=== PATIENT | male | born 1945 | race Caucasian/White ===

== ENCOUNTER 2019-10-07 10:41 | Emergency (ER) | payer OTHER ==
[2019-10-07] MEDS ORDERED: NA CHLORIDE 0.9% 1,000 ML ONE (11:22)
[2019-10-07] MEDS ORDERED: CEFEPIME 1 GM/100 ML BAG IV ONE (11:22)
[2019-10-07] MEDS ORDERED: PANTOPRAZOLE 40 MG INJ ONE (11:22)
[2019-10-07 11:49] LABS: Absolute Lymphocytes (CBC) 0.1 K/uL (0.7-4.9); Basophils % 0.5 % (0-1.3); Hematocrit 22.9 % (39.6-49.0); Lymphocytes % 0.9 % (15.3-44.8); MPV 7.4 fL (7.6-11.3); RBC Red Blood Cell Count 3.08 M/uL (4.33-5.43)
--- NOTE | 2019-10-07 12:04 | RAD REPORT ---
EXAM DESCRIPTION: Pérez Single View10/07/2019 11:42 am CLINICAL HISTORY: sob COMPARISON: 2018 FINDINGS: Moderate right pleural effusion Diffuse bilateral pulmonary opacities. The heart is mildly to moderately enlarged. IMPRESSION: These findings likely indicate CHF
[2019-10-07 12:09] LABS: Protime INR 5.29
--- NOTE | 2019-10-07 12:14 | EDPHYS ---
Physician Documentation [facility] Name: Mary Jacob Jr Age: 74 yrs Sex: Male : 1945 Arrival Date: 10/07/2019 Time: 10:44 Bed 3 Private MD: ED Physician Uriel Kennedy HPI: 10/07 11:15 This 74 yrs old Male presents to ER via EMS with complaints of Back Pain, Low dorian Blood Sugar. 11:15 The patient presents with pain that is chronic, with no known mechanism of injury. The dorian symptoms are located in the low back. Onset: The symptoms/episode began/occurred this morning. Historical: - Allergies: 10:51 No Known Allergies; ss - Home Meds: 11:09 Magnesium [Active]; Xifaxan oral oral [Active]; Tramadol Oral [Active]; Coumadin Oral ss [Active]; pantoprazole oral oral [Active]; midodrine oral oral [Active]; Stool Softner [Active]; propranolol Oral [Active]; Coreg Oral [Active]; torsemide oral oral [Active]; Spironolactone Oral [Active]; levothyroxine oral [Active]; dobutamine drip continuous [Active]; Adempas oral oral [Active]; - PMHx: 10:51 Hypertension; Cirrhosis; TIA; CHF; Atrial Fib; ss 11:09 Hypothyroidism; Pulmonary hypertension; ss - Immunization history:: Flu vaccine is not up to date. - Social history:: Smoking status: Patient/guardian denies using tobacco. - Ebola Screening: : No symptoms or risks identified at this time. ROS: 11:16 Constitutional: Negative for fever, chills, and weight loss, Eyes: Negative for injury, dorian pain, redness, and discharge, ENT: Negative for injury, pain, and discharge, Neck: Negative for injury, pain, and swelling, Cardiovascular: Negative for chest pain, palpitations, and edema, Respiratory: Negative for shortness of breath, cough, wheezing, and pleuritic chest pain, Back: Negative for injury and pain, : Negative for injury, bleeding, discharge, and swelling, MS/Extremity: Negative for injury and deformity, Allergy/Immunology: Negative for hives, rash, and allergies, Endocrine: Negative for neck swelling, polydipsia, polyuria, polyphagia, and marked weight changes, Hematologic/Lymphatic: Negative for swollen nodes, abnormal bleeding, and unusual bruising. 11:16 Abdomen/GI: Positive for abdominal pain, of the right upper quadrant, left upper quadrant, right lower quadrant and left lower quadrant. 11:16 MS/extremity: Positive for laceration, pain, of the right arm, left arm, right leg and left leg, cachectic appearence. 11:16 Skin: Positive for ecchymosis, laceration(s). Exam: 11:16 Constitutional: This is a well developed, well nourished patient who is awake, alert, dorian and in no acute distress. Head/Face: Normocephalic, atraumatic. Eyes: Pupils equal round and reactive to light, extra-ocular motions intact. Lids and lashes normal. Conjunctiva and sclera are non-icteric and not injected. Cornea within normal limits. Periorbital areas with no swelling, redness, or edema. ENT: Nares patent. No nasal discharge, no septal abnormalities noted. Tympanic membranes are normal and external auditory canals are clear. Oropharynx with no redness, swelling, or masses, exudates, or evidence of obstruction, uvula midline. Mucous membranes moist. Neck: Trachea midline, no thyromegaly or masses palpated, and no cervical lymphadenopathy. Supple, full range of motion without nuchal rigidity, or vertebral point tenderness. No Meningismus. Chest/axilla: Normal chest wall appearance and motion. Nontender with no deformity. No lesions are appreciated. Respiratory: Lungs have equal breath sounds bilaterally, clear to auscultation and percussion. No rales, rhonchi or wheezes noted. No increased work of breathing, no retractions or nasal flaring. Back: No spinal tenderness. No costovertebral tenderness. Full range of motion. MS/ Extremity: Pulses equal, no cyanosis. Neurovascular intact. Full, normal range of motion. Psych: Awake, alert, with orientation to person, place and time. Behavior, mood, and affect are within normal limits. 11:16 Cardiovascular: Rate: normal, Rhythm: regular, Pulses: Pulses are 3+ in bilateral radial, brachial, femoral, popliteal, posterior tibial and and dorsalis pedis arteries.. Heart sounds: murmur, systolic, grade 2 over 6, heard in the aortic area, rub, not appreciated, gallop, not appreciated, JVD: is noted bilaterally, to 3 cm. 11:16 Respiratory: the patient does not display signs of respiratory distress, Respirations: normal, Breath sounds: are clear throughout, no bronchial sounds, no decreased breath sounds, no rales, rhonchi, no stridor, no wheezing. Vital Signs: 10:58 BP 86 / 49; Pulse 89; Resp 15; Temp 96.8(TE); Pulse Ox 100% on R/A; Weight 47.17 kg; ss 11:30 BP 86 / 57; Pulse 84; Resp 11; Pulse Ox 100% ; sv 12:00 BP 81 / 53; Pulse 82; Resp 14; Pulse Ox 100% ; sv 12:28 BP 81 / 52; Pulse 88; Resp 16; Temp 97.0; Pulse Ox 100% on R/A; sg 13:00 BP 80 / 50; Pulse 82; Resp 16; Pulse Ox 99% on R/A; sg 13:30 BP 84 / 53; Pulse 83; Resp 14; Pulse Ox 100% ; sv 14:00 BP 81 / 54; Pulse 84; Resp 12; Pulse Ox 100% ; sv 14:30 BP 84 / 55; Pulse 78; Resp 12; Pulse Ox 100% ; sv 14:58 BP 86 / 50; Pulse 77; Resp 14 S; Temp 97.0; Pulse Ox 100% on 4 lpm NC; sg MDM: 10:45 Patient medically screened. [facility] 11:19 Data reviewed: vital signs, nurses notes, lab test result(s), EKG, radiologic studies, dorian plain films. 10/07 11:14 Order name: Basic Metabolic Panel; Complete Time: 12:36 [facility] 10/07 11:14 Order name: CBC with Diff; Complete Time: 12:56 [facility] 10/07 11:14 Order name: LFT's; Complete Time: 12:36 [facility] 10/07 11:14 Order name: Magnesium; Complete Time: 12:36 [facility] 10/07 11:14 Order name: NT PRO-BNP; Complete Time: 12:36 [facility] 10/07 11:14 Order name: PT-INR; Complete Time: 12:36 [facility] 10/07 11:14 Order name: Troponin (emerg Dept Use Only); Complete Time: 12:36 [facility] 10/07 11:14 Order name: AMMONIA; Complete Time: 12:09 [facility] 10/07 11:14 Order name: Type And Screen; Complete Time: 12:56 [facility] 10/07 11:14 Order name: Blood Culture Adult (2) [facility] 10/07 11:14 Order name: Lactate; Complete Time: 12:09 [facility] 10/07 12:53 Order name: Glucose, Ancillary Testing; Complete Time: 12:56 [facility] 10/07 12:56 Order name: CBC Smear Scan; Complete Time: 12:56 [facility] 10/07 14:23 Order name: ABO/RH no charge [facility] 10/07 11:14 Order name: XRAY Chest (1 view); Complete Time: 12:36 [facility] 10/07 11:14 Order name: EKG; Complete Time: 11:15 [facility] 10/07 11:14 Order name: Cardiac monitoring; Complete Time: 11:15 [facility] 10/07 11:14 Order name: EKG - Nurse/Tech; Complete Time: 12:22 [facility] 10/07 11:14 Order name: IV Saline Lock; Complete Time: 11:16 [facility] 10/07 11:14 Order name: Labs collected and sent; Complete Time: 11:16 [facility] 10/07 11:14 Order name: O2 Per Protocol; Complete Time: 11:16 [facility] 10/07 11:14 Order name: O2 Sat Monitoring; Complete Time: 11:16 [facility] 10/07 14:41 Order name: Glucose, Ancillary Testing EDMS Administered Medications: 11:50 Drug: ProTONIX 40 mg Route: IVP; Site: PICC; sg 12:30 Follow up: Response: No adverse reaction sg 11:50 Drug: NS 0.9% 500 ml Route: IV; Rate: bolus; Site: PICC; sg 12:29 Follow up: Response: No adverse reaction; IV Status: Completed infusion; IV Intake: sg 500ml 11:50 Drug: NS 0.9% 1000 ml Route: IV; Rate: 125 ml/hr; Site: PICC; sg 11:50 Drug: Cefepime 1 grams Route: IVPB; Rate: 200 ml/hr; Infused Over: 30 mins; Site: PICC; sg 12:29 Follow up: Response: No adverse reaction; IV Status: Completed infusion sg 12:45 Drug: D50W 50 ml Route: IVP; Site: left forearm; sv 12:50 Drug: Vitamin K1 5 mg Route: Sub-Q; Site: right upper arm; sg 13:10 Drug: Albumin 25 grams Volume: 100 ml; Route: IVPB; Site: PICC; sg Disposition: 10/07/19 12:13 Transfer ordered to [facility]. Diagnosis are Hypoglycemia, unspecified, Unspecified cirrhosis of liver, Hypotension, Laceration without foreign body of unspecified upper arm, Laceration without foreign body, right lower leg, Unspecified combined systolic (congestive) and diastolic (congestive) heart failure, Pleural effusion in conditions classified elsewhere. - Reason for transfer: Higher level of care. - Accepting physician is [facility] junior back. - Condition is Stable. - Problem is new. - Symptoms have improved. Signatures: Dispatcher [employer] EDBerenice Argueta RN RN sv Gay, Steven, RN RN sg Anderson, Corey, MD MD cha Nieto, Roman, MD MD rn Smirch, Shelby, RN RN ss Corrections: (The following items were deleted from the chart) 15:01 12:13 10/07/2019 12:13 Transfer ordered to [facility]. Diagnosis is sg Hypoglycemia, unspecified; Unspecified cirrhosis of liver; Hypotension; Laceration without foreign body of unspecified upper arm; Laceration without foreign body, right lower leg; Unspecified combined systolic (congestive) and diastolic (congestive) heart failure; Pleural effusion in conditions classified elsewhere. Reason for transfer: Higher level of care. Accepting physician is [facility] junior back. Condition is Stable. Problem is new. Symptoms have improved. dorian
--- NOTE | 2019-10-07 12:14 | ER ---
Nurse's Notes [facility] Name: Mary Jacob Jr Age: 74 yrs Sex: Male : 1945 Arrival Date: 10/07/2019 Time: 10:44 Bed 3 Private MD: Diagnosis: Hypoglycemia, unspecified;Unspecified cirrhosis of liver;Hypotension;Laceration without foreign body of unspecified upper arm;Laceration without foreign body, right lower leg;Unspecified combined systolic (congestive) and diastolic (congestive) heart failure;Pleural effusion in conditions classified elsewhere Presentation: 10/07 10:45 Presenting complaint: EMS states: Pt woke up this AM in severe back/neck pain. ss told EMS that patient has declined in health significantly over the past week. BGL on arrival to scene was 37. 160 mL of D10 was given and brought glucose up to 97. Transition of care: patient was not received from another setting of care. Onset of symptoms is unknown. Risk Assessment: Do you want to hurt yourself or someone else? Patient reports no desire to harm self or others. Care prior to arrival: Medication(s) given: NS 100 mL, D10 160 mL, Zofran 4 mg and Ketamine 10 mg IV given for pain by EMS. Pt has a continuous Dobutamine drip infusing VIA subclavian central line. 10:45 Method Of Arrival: EMS: [facility] ss 10:45 Acuity: VAL 2 ss 10:54 Care prior to arrival: IV initiated. 20 GA, in the left forearm, Glucose check: 37. ss 11:02 Initial Sepsis Screen: Does the patient meet any 2 criteria? Mean Arterial Pressure ss (MAP) < 65. Does the patient have a suspected source of infection? No. Patient's initial sepsis screen is negative. Triage Assessment: 11:10 General: Appears uncomfortable, ill, unkempt, emaciated, cachectic, Behavior is sg cooperative, quiet. Pain: Complains of pain in back and chest Quality of pain is described as aching. EENT: No signs and/or symptoms were reported regarding the EENT system. Neuro: Level of Consciousness is awake, obeys commands, Speech is normal. Cardiovascular: Patient's skin is warm and dry. Chest pain is denied. Respiratory: Airway is patent Respiratory effort is even, unlabored, Respiratory pattern is regular, symmetrical. GI: Abdomen is round distended, noted to have ascites, discolored. Derm: Skin is fragile, is thin, with poor turgor has skin tears on scalp, Bilateral upper extremities, RLE Skin is pale, Skin temperature is warm. Musculoskeletal: Range of motion: intact in all extremities. Historical: - Allergies: 10:51 No Known Allergies; ss - Home Meds: 11:09 Magnesium [Active]; Xifaxan oral oral [Active]; Tramadol Oral [Active]; Coumadin Oral ss [Active]; pantoprazole oral oral [Active]; midodrine oral oral [Active]; Stool Softner [Active]; propranolol Oral [Active]; Coreg Oral [Active]; torsemide oral oral [Active]; Spironolactone Oral [Active]; levothyroxine oral [Active]; dobutamine drip continuous [Active]; Adempas oral oral [Active]; - PMHx: 10:51 Hypertension; Cirrhosis; TIA; CHF; Atrial Fib; ss 11:09 Hypothyroidism; Pulmonary hypertension; ss - Immunization history:: Flu vaccine is not up to date. - Social history:: Smoking status: Patient/guardian denies using tobacco. - Ebola Screening: : No symptoms or risks identified at this time. Screenin:05 Abuse screen: Denies threats or abuse. Denies injuries from another. Nutritional sg screening: No deficits noted. Tuberculosis screening: No symptoms or risk factors identified. Never had TB. Fall Risk None identified. Assessment: 10:52 Reassessment: Pt has out of hospital DNR. Copy placed on chart. ss 11:04 Reassessment: Patient appears in no apparent distress at this time. at sg bedside assessing patient at this time. 12:00 Reassessment: Pt placed on Waffle air mattress for comfort and repositioned with total ss assist. Family remains at bedside. 12:00 Reassessment: pt repositioned, placed on airmatress for comfort, pt reports feels sg better. 12:34 Reassessment: Dr. Kennedy and Berenice Daniels RN notified of critical lab value GLU 48.ss 12:35 Reassessment: Patient and/or family updated on plan of care and expected duration. Pain sg level reassessed. Patient is alert, oriented x 3, equal unlabored respirations, skin warm/dry/pink. family at bedside. 12:50 Reassessment: Patient appears in no apparent distress at this time. PT receiving sg Dobutamine 4mg/mL at ordered rate of 5.4 mL/hr (21.6 mg/hr) via [facility] [phone]. 14:50 Reassessment: Patient appears in no apparent distress at this time. Patient and/or sg family updated on plan of care and expected duration. Pain level reassessed. Patient is alert, oriented x 3, equal unlabored respirations, skin warm/dry/pink. pt family at bedside at this time, awaiting transport to receiving facility. Vital Signs: 10:58 BP 86 / 49; Pulse 89; Resp 15; Temp 96.8(TE); Pulse Ox 100% on R/A; Weight 47.17 kg; ss 11:30 BP 86 / 57; Pulse 84; Resp 11; Pulse Ox 100% ; sv 12:00 BP 81 / 53; Pulse 82; Resp 14; Pulse Ox 100% ; sv 12:28 BP 81 / 52; Pulse 88; Resp 16; Temp 97.0; Pulse Ox 100% on R/A; sg 13:00 BP 80 / 50; Pulse 82; Resp 16; Pulse Ox 99% on R/A; sg 13:30 BP 84 / 53; Pulse 83; Resp 14; Pulse Ox 100% ; sv 14:00 BP 81 / 54; Pulse 84; Resp 12; Pulse Ox 100% ; sv 14:30 BP 84 / 55; Pulse 78; Resp 12; Pulse Ox 100% ; sv 14:58 BP 86 / 50; Pulse 77; Resp 14 S; Temp 97.0; Pulse Ox 100% on 4 lpm NC; sg ED Course: 10:44 Patient arrived in ED. ss 10:45 Uriel Kennedy MD is Attending Physician. dorian 10:50 Triage completed. ss 10:51 Arm band placed on right wrist. ss 11:01 ED physician to see patient. sv 11:01 Patient has correct armband on for positive identification. Placed in gown. Bed in low sv position. Call light in reach. Side rails up X2. Adult w/ patient. potline monitor on. Pulse ox on. NIBP on. 11:04 Reed Navas RN is Primary Nurse. sg 11:10 Maintain EMS IV. Dressing intact. Good blood return noted. Site clean \T\ dry. Gauge \T\ sg site: 20 G L AC. Wound care: located on right occipital area, right supraclavicular area, Left first web space and lateral aspect of right calf. 11:30 First set of blood cultures drawn by me, PICC. sg 11:43 XRAY Chest (1 view) In Process Unspecified. EDMS 11:48 Second set of blood cultures drawn by me. sg 13:15 No provider procedures requiring assistance completed. Patient transferred, IV remains sg in place. intact, No redness/swelling at site. Administered Medications: 11:50 Drug: ProTONIX 40 mg Route: IVP; Site: PICC; sg 12:30 Follow up: Response: No adverse reaction sg 11:50 Drug: NS 0.9% 500 ml Route: IV; Rate: bolus; Site: PICC; sg 12:29 Follow up: Response: No adverse reaction; IV Status: Completed infusion; IV Intake: sg 500ml 11:50 Drug: NS 0.9% 1000 ml Route: IV; Rate: 125 ml/hr; Site: PICC; sg 11:50 Drug: Cefepime 1 grams Route: IVPB; Rate: 200 ml/hr; Infused Over: 30 mins; Site: PICC; sg 12:29 Follow up: Response: No adverse reaction; IV Status: Completed infusion sg 12:45 Drug: D50W 50 ml Route: IVP; Site: left forearm; sv 12:50 Drug: Vitamin K1 5 mg Route: Sub-Q; Site: right upper arm; sg 13:10 Drug: Albumin 25 grams Volume: 100 ml; Route: IVPB; Site: PICC; sg Intake: 12:29 IV: 500ml; Total: 500ml. sg Outcome: 12:13 ER care complete, transfer ordered by . dorian 12:50 Transferred by ground EMS to [facility], Transfer form completed. sg 12:50 critical 12:50 Instructed on the need for transfer, safety practices, Demonstrated understanding of instructions, Report called to ARIEL Don for [facility] 15:01 Patient left the ED. sg Signatures: Dispatcher [employer] EDMS Jordan, Berenice, RN RN sv Navas, Reed, RN RN sg Brent, Uriel, MD MD dorian Smirch, Anastasiya, RN RN ss Corrections: (The following items were deleted from the chart) 11:02 10:45 Acuity: VAL 1 ss ss 13:17 13:00 BP 85 / 84; Pulse 84bpm; Resp 12bpm; Pulse Ox 100%; sv sg
[2019-10-07 12:31] LABS: Albumin 2.7 g/dL (3.4-5.0); Bilirubin Direct 0.3 mg/dL (0-0.2); Bilirubin Total 0.5 mg/dL (0.2-1.0); Magnesium 3.1 mg/dL (1.8-2.4); Potassium 5.1 mmol/L (3.5-5.1); Protein, Total 5.9 g/dL (6.4-8.2); Troponin (Emerg Dept Use Only) 0.02 ng/mL (0.0-0.045)
[2019-10-07] MEDS ORDERED: D50W 25 GM/50 ML SYRINGE/VIAL IV ONE (12:42)
[2019-10-07] MEDS ORDERED: VITAMIN K (ADULT) 10 MG/ML ONE (12:52)
[2019-10-07 12:55] LABS: Anisocytosis 2+; Blood Morphology Comment NOTED (NOT SEEN); Macrocytosis 1+; Platelet Estimate ADEQ; Urine White Blood Cell Casts OK
[2019-10-07 12:56] LABS: Burr Cells 1+
[2019-10-07] MEDS ORDERED: ALBUMIN HUMAN 25% 100 ML IV ONE (13:05)
[2019-10-07 15:55] VITALS: TEMP 97
[2019-10-07 15:58] VITALS: O2SAT 100
[2019-10-07 16:01] VITALS: BP 84/55
--- NOTE | 2019-10-08 06:23 | EKG ---
Test Date: 2019-10-07 Test Time: 11:26:39 Mri Manager: MATT MEASUREMENT RESULTS: Intervals: Rate: 83 OR: QRSD: 200 QT: 484 QTc: 568 Orange: P: OR: QRS: 122 T: -54 INTERPRETIVE STATEMENTS: Atrial fibrillation or junctional rhythm Right bundle branch block Lateral infarct, age undetermined T wave abnormality, consider inferior ischemia or digitalis effect Low voltage QRS Abnormal ECG Compared to ECG 03/18/2002 11:05:00 Myocardial infarct finding now present Sinus bradycardia no longer present T-wave abnormality still present Electronically Signed On 10-08-19 06:23:08 SCOOP MACHINE OPERATOR by Cecil Baum
== END 2019-10-07 15:01 | disposition short-term general hospital (02) ==
LOC: ER 10:41
DX: K74.60 Unspecified cirrhosis of liver (principal); I95.9 Hypotension, unspecified; S41.112A Laceration without foreign body of left upper arm, initial encounter; S41.111A Laceration without foreign body of right upper arm, initial encounter; S81.811A Laceration without foreign body, right lower leg, initial encounter; I50.40 Unspecified combined systolic (congestive) and diastolic (congestive) heart failure; J91.8 Pleural effusion in other conditions classified elsewhere; I10 Essential (primary) hypertension; I48.91 Unspecified atrial fibrillation; E03.9 Hypothyroidism, unspecified; Z79.01 Long term (current) use of anticoagulants
CPT/HCPCS: 96365; 93005; 87040 ×2; 85025; 80048; 36415; 82140; 86900; 83735; 86850; 85610; 86901; 82947 ×2; 80076; 83605; 84484; 83880; 71045; 96375; 96372; 99285; J3430; C9113; J0692; P9047; J7030